=== PATIENT | female | born 1990 | race Caucasian/White ===

== ENCOUNTER 2022-05-01 20:45 | Inpatient (IN) | payer OTHER ==
[~2022-05-01] VITALS: Ht 170.2 cm; Wt 69.6 kg
[2022-05-01] VITALS (7 sets, daily range): BP systolic 108–131; BP diastolic 55–79; PULSE 57–138; TEMP 97.6
[2022-05-01 21:54] LABS: BASO % 0.2 % (0.0-2.0); EOS % 0.1 % (0.0-4.0); GRAN # 6.6 K/mm3 (1.4-6.5); GRAN % 73.5 % (42.2-75.2); HEMATOCRIT 38.6 % (37.0-47.0); HEMOGLOBIN 12.6 g/dl (12.5-16.0); LYMPH # 1.7 K/mm3 (1.2-3.4); LYMPH % 19.2 % (20.0-51.0); MEAN CELL VOLUME 90 fl (80.0-100.0); MEAN CORPUSCULAR HEMOGLOBIN 29 pg (27-31); MEAN CORPUSCULAR HGB CONC 33 g/dl (33.0-37.0); MEAN PLATELET VOLUME 12.9 fl (7.4-10.4); MONO # 0.6 K/mm3 (0.1-0.6); MONO % 6.9 % (1.7-9.3); PLATELET COUNT 107 K/mm3 (130-400); RED BLOOD COUNT 4.31 M/mm3 (4.10-5.30); REDCELL DISTRIBUTION WIDTH-CV 13.2 % (11.5-14.5)
--- NOTE | 2022-05-01 21:56 | NUR ---
PT REQUESTS EPIDURAL. WILL NOTIFY ANESTHESIA.
--- NOTE | 2022-05-01 22:20 | NUR ---
220- Laina DEVINE CRNA IN ROOM FOR EPIDURAL PLACEMENT. PT SITTING UP AT BEDSIDE. 2213- SINGLE SHOT GIVEN BY Laina DEVINE CRNA. PT TOLERATED WELL. 2220- PT STATES INCREASED RECTAL PRESSURE. SVE OF 9/100/0, INTACT. REPOSITIONED TO SEMIFOWLERS.
--- NOTE | 2022-05-01 23:55 | NUR ---
2236- DR. FRITZ IN ROOM TO EVALUATE PT AND PERFORM AROM. 223- AROM PERFORMED BY DR. FRITZ, CLEAR FLUID. ANTERIOR LIP NOTED. DR FRITZ OUT OF ROOM. 2315-DR. FRITZ IN ROOM TO EVALUATE PT. 2317- SVE OF COMPLETE PER DR. FRITZ. BREAKING DOWN BED FOR DELIVERY. 2322- PT BEGINS PUSHING WITH DR. FRITZ. 2334- SPONTANEOUS VAGINAL DELIVERY OF VIABLE BABY BOY. BABY TO MOTHER'S ABDOMEN. CORD CLAMPED BY DR. FRITZ AND BUT BY PT. BABY CARES ASSUMED BY Martina VENCES RN. 2342- SPONTANEOUS DELIVERY OF INTACT PLACENTA OVER 2ND DEGREE PERINEAL LACERATION AND BILATERAL LABIAL LACERATIONS. PITOCIN STARTED AT 333ML/HR PER PROTOCOL. DR FRITZ BEGINS REPAIR. 2355- RECOVERY STARTED.
[2022-05-02] VITALS (11 sets, daily range): BP systolic 105–127; BP diastolic 55–72; PULSE 56–91; TEMP 97.8–98.2
[2022-05-02] MEDS ORDERED: ZYRTEC 10MG10 MG PO (03:17)
[2022-05-02] MEDS ORDERED: PRENATAL TABLET PO (03:18)
[2022-05-02] MEDS ORDERED: PRILOSEC 20MG20 MG PO (03:18)
[2022-05-03 07:00] VITALS: BP 109/78; PULSE 63; TEMP 97.8
[2022-05-03] MEDS ORDERED: IBU800 M1 PO (09:39)
== END 2022-05-03 11:42 | disposition home or self-care (01) | DRG 807 ==
LOC: LDRO 20:45 → LDR 21:28 → OB 05-02 02:30
PROVIDERS: Obstetrics & Gynecology; ADMIT Obstetrics & Gynecology
PROC: 10E0XZZ Delivery of Products of Conception, External Approach (ICD-10-PCS; principal; 2022-05-02)
PROC: 0KQM0ZZ Repair Perineum Muscle, Open Approach (ICD-10-PCS; 2022-05-02)
PROC: 0UQMXZZ Repair Vulva, External Approach (ICD-10-PCS; 2022-05-02)
DX: O70.1 Second degree perineal laceration during delivery (principal); Z37.0 Single live birth; Z3A.39 39 weeks gestation of pregnancy; Z14.8 Genetic carrier of other disease; Z23 Encounter for immunization
CPT/HCPCS: J2590; J7120